=== PATIENT | female | born 1945 | race Caucasian/White ===

== ENCOUNTER 2018-06-15 15:55 | Emergency (ER) | payer OTHER, MEDICAID ==
[2018-06-15 16:09] VITALS: RESP 18
[2018-06-15] MEDS ORDERED: Tdap Vaccine 0.5 ml Vial (10-64 yrs) IM ONE ×2 (16:21→16:31)
--- NOTE | 2018-06-15 17:02 | C.PDOC ---
History Of Present Illness 72 y/o F p/w fall earlier today. patient tripped on step, fell down 3-4 steps. Now reports pain to face with abrasions. Denies LOC, vomiting, dyspnea, neck pain. Has history of bilateral knee replacements but denies pain in knees at this time. Not on AC. - HPI Time Seen by Provider: 06/15/18 16:17 Chief Complaint (Nursing): Trauma Past Medical History Vital Signs: Last Vital Signs Temp 98.6 F 06/15/18 16:03 Pulse 87 06/15/18 16:03 Resp 18 06/15/18 16:03 BP 175/79 H 06/15/18 16:03 Pulse Ox 100 06/15/18 16:03 - Medical History PMH: Diabetes, HTN Family History: States: No Known Family Hx - Social History Hx Tobacco Use: No Hx Alcohol Use: No Hx Substance Use: No - Immunization History Hx Tetanus Toxoid Vaccination: No Hx Influenza Vaccination: Yes Hx Pneumococcal Vaccination: No Review Of Systems Except As Marked, All Systems Reviewed And Found Negative. Eyes: Negative for: Vision Change Cardiovascular: Negative for: Chest Pain Respiratory: Negative for: Shortness of Breath Gastrointestinal: Negative for: Vomiting Physical Exam - Physical Exam Additional Physical Exam Comments: gen nad head nc, abrasion to forehead, nose, cheeks eyes perrl, no hyphema ent mmm. no septal hematoma. neck no midline tenderness, from chest no tenderness cv reg rate lungs cta b/l abd soft nt back no midline tenderness extremities knees FROM without edema or tenderness skin abrasion as above with 2 small lacerations to nose and L lateral periorbital area, abrasion to L knee neuro alert, no focal deficit ED Course And Treatment O2 Sat by Pulse Oximetry: 100 Laceration - Laceration Repair No standard instances Wound Length (In cm): 0.5,0.5 Description Of Wound: Linear Wound Cleansed With: Betadine Anesthesia: Lidocaine 2% Wound Examination: Irrigated With Saline Wound Debridement/Revision: Wound Margins Revised Wound Closure: Suture Suture Technique And Material Used: Interrupted, Nylon Wound Complexity: Simple Medical Decision Making Medical Decision Making: Impression: Left frontal soft tissue swelling. Mildly displaced right and nondisplaced left nasal bone fracture deformities and associated soft tissue swelling. IMPRESSION: Examination limited by motion/streak artifact. Left frontal scalp soft tissue swelling. No acute intracranial pathology identified. Disposition - Disposition Referrals: Shaheed Hoff MD [Staff Provider] - Disposition: HOME/ ROUTINE Disposition Time: 18:17 Condition: GOOD Prescriptions: Amoxicillin/Clavulanate [Augmentin 875 MG-125 MG] 1 tab PO BID #14 tab Bacitracin Ointment [Bacitracin] 1 appl TOP TID #1 tube Instructions: Laceration Repair With Stitches (DC), Nose Fracture, Skin Abrasions Forms: [employer] ([place]) - Clinical Impression Clinical Impression: Abrasion, Face lacerations, Nasal fracture
[2018-06-15] MEDS ORDERED: Lidocaine 2% MPF (5 ml) Inj ONE (17:19)
--- NOTE | 2018-06-15 17:41 | CT ---
Date of service: 06/15/2018 PROCEDURE: CT HEAD WITHOUT CONTRAST. HISTORY: fall, head injury COMPARISON: None available. TECHNIQUE: Axial computed tomography images were obtained through the head/brain without intravenous contrast. Radiation dose: Total exam DLP = 891.97 mGy-cm. This CT exam was performed using one or more of the following dose reduction techniques: Automated exposure control, adjustment of the mA and/or kV according to patient size, and/or use of iterative reconstruction technique. FINDINGS: Motion and streak artifact obscures evaluation, particularly of the skull base. HEMORRHAGE: No intracranial hemorrhage. BRAIN: No mass effect or edema. Scattered periventricular and subcortical white matter hypodensities, which are nonspecific, but often seen with chronic microvascular ischemic disease. Please note that MRI with diffusion imaging is more sensitive in the detection of acute ischemic event. VENTRICLES: No hydrocephalus. CALVARIUM: Unremarkable. PARANASAL SINUSES: Unremarkable as visualized. No significant inflammatory changes. MASTOID AIR CELLS: Unremarkable as visualized. No inflammatory changes. OTHER FINDINGS: Left frontal scalp soft tissue swelling. IMPRESSION: Examination limited by motion/streak artifact. Left frontal scalp soft tissue swelling. No acute intracranial pathology identified.
--- NOTE | 2018-06-15 17:48 | CT ---
Date of service: 06/15/2018 CT orbits without IV contrast Indication: fall, facial injury Comparison: Noncontrast head CT performed the same day. Technique: Axial computed tomography images were obtained of the orbits without the use of intravenous contrast. Coronal and sagittal reformatted images were generated and reviewed. This CT exam was performed using 1 or more of the following dose reduction techniques: Automated exposure control, adjustment of the MAA and/or kV according to patient size, and/or use of iterative reconstruction technique. Radiation dose: Total exam DLP = 896.87 mGy-cm. Findings: Left frontal soft tissue swelling. Mildly displaced right and nondisplaced left nasal bone fracture deformities and associated soft tissue swelling. The facial bones appear unremarkable otherwise unremarkable without acute displaced fracture. The orbits appear unremarkable. The included left temporomandibular joint appears located. The right temporomandibular joint is excluded from view. The paranasal sinuses appear clear. The visualized brain appears unremarkable. Impression: Left frontal soft tissue swelling. Mildly displaced right and nondisplaced left nasal bone fracture deformities and associated soft tissue swelling.
[2018-06-15] MEDS ORDERED: Bacitracin 500 Units/gm Oint Foilpak UD ONE (18:18)
[2018-06-15] MEDS ORDERED: Bacitracin 500 Units/gm Oint Foilpak UD TOP ONE (18:30)
[2018-06-15 18:34] VITALS: BP 169/93; PULSE 84; TEMP 98.2; O2SAT 99
== END 2018-06-15 18:40 | disposition home or self-care (01) ==
LOC: C.ER 15:55
DX: S01.21XA Laceration without foreign body of nose, initial encounter (principal); S02.2XXA Fracture of nasal bones, initial encounter for closed fracture; S00.81XA Abrasion of other part of head, initial encounter; S80.212A Abrasion, left knee, initial encounter; W10.9XXA Fall (on) (from) unspecified stairs and steps, initial encounter